=== PATIENT | male | born 1995 | race Caucasian/White ===

== ENCOUNTER 2018-08-29 11:52 | Emergency (ER) | payer OTHER ==
[~2018-08-29] VITALS: Ht 195.6 cm; Wt 99.8 kg
== END 2018-08-29 13:18 | disposition home or self-care (01) ==
LOC: ER 11:52
DX: M25.461 Effusion, right knee (principal); Z88.0 Allergy status to penicillin
CPT/HCPCS: 73562-RT; 99283-25